=== PATIENT | female | born 2000 | race Caucasian/White ===

== ENCOUNTER 2025-01-04 12:22 | Emergency (ER) | payer BC, SELFPAY ==
--- OUTSIDE RECORDS SUMMARY | 2024-11-26 07:00 | XMS_ITS | Encounter Summary ---
Author Organization [facility] Address [address] [place] [id number] Care Team Providers Care Engine Room Helper Name Role Phone Carlee Bernabe APRN, CNP Primary Care Provider + [phone] Carlee Bernabe APRN TRUCK JUMPER Unavailable [phone] Reason for Visit * Reason Comments Physical Encounter Details Date Type Department Care Team (Late st Contact Info) Description 11/26/2024 7:00 AM CDT Office Visit [facility] [address], [address] [place] [id number] Carlotta Gale PA-C [address] [place] [address] Routine general medical examination at a health care facility (Primary Dx); Menorrhagia with regular cycle; Encounter for counseling regarding contraception Social History Tobacco Use Types Packs/Day Years Used Date Smoking Tobacco: Never Passive Smoke Exposure: Never Smokeless Tobacco: Never Alcohol Use Standard Drinks/Week Comments Yes 3 (1 standard drink = 0.6 oz pur e alcohol) Socially PHQ-2 Answer Date Recorded PHQ-2 Score 2 11/26/2024 [facility] - Occupational Stress Questionnaire Answer Date Recorded Do you feel stress - tense, restless, nervous, or anxious, or unable to sleep at night because your mind is troubled all the time - these days? Rather much 11/25/2024 Exercise Vital Sign Answer Date Recorde d On average, how many days pe r week do you engage in moderate to strenuous exercise (like a brisk walk)? 3 days 11/25/2024 On average, how many minutes do you engage in exercise at this level? 20 min 11/25/2024 Social Connections Answer Date Recorded How often do you feel lonely or isolated from th ose around you? Rarely 11/25/2024 Food Insecurity Answer Date Recorded Within the past 12 months, d id you worry that your food would run out before you got money to buy more? No 11/25/2024 Within the past 12 months, d id the food you bought just not last and you didn t have money to get more? No 11/25/2024 Housing Stability Answer Date Recorded Do you have housing? (Housin g is defined as stable permanent housing and does not include staying outside in a car, in a tent, in an abandoned building, in an overnight [place], or couch-surfing.) Yes 11/25/2024 Are you worried about losing your housing? No 11/25/2024 Financial Resource Strain Answer Date R ecorded Within the past 12 months, h ave you or your family members you live with been unable to get utilities (heat, electricity) when it was really needed? No 11/25/2024 Transportation Needs Answer Date Record ed Within the past 12 months, h as lack of transportation kept you from medical appointments, getting your medicines, non-medical meetings or appointments, work, or from getting things that you need? No 11/25/2024 Interpersonal Safety Answer Date Record ed Do you feel physically and e motionally safe where you currently live? Yes 11/26/2024 Within the past 12 months, h ave you been hit, slapped, kicked or otherwise physically hurt by someone? No 11/26/2024 Within the past 12 months, h ave you been humiliated or emotionally abused in other ways by your partner or ex-partner? No 11/26/2024 Comments No Sex and Gender Information Value Date Recorded Sex Assigned at Not on file Legal Sex Female 3:06 PM CDT Gender Identity Not on file Sexual Orientation Not on file documented as of this encounter Last Filed Vital Signs Vital Sign Reading Time Taken Comments Blood Pressure 112/72 11/26/2024 7:06 AM CDT Pulse 86 11/26/2024 7:06 AM CDT Temperature 36.5 C (97.7 F) 11/26/2024 7:06 AM CDT Respiratory Rate 16 11/26/2024 7:06 AM CDT Oxygen Saturation 100% 11/26/2024 7:06 AM CDT Inhaled Oxygen Concentration - - Weight 66 kg (145 lb 7 oz) 11/26/2024 7:06 AM CD T Height 162.6 cm (5' 4) 11/26/2024 7:06 AM CDT Body Mass Index 24.96 11/26/2024 7:06 AM CDT documented in this encounter Patient Instructions * Patient Instructions* Carlotta Gale PA-C - 11/26/2024 7:00 AM CDT Patient Education Preventive Care Advice This is general advice we often give to help people stay healthy. Your care team may have specific advice just for you. Please talk to your care team about your own preventive care needs. Lifestyle Exercise at least 150 minutes each week (30 minutes a day, 5 days a week). Do muscle strengthening activities 2 days a week. These help control your weight and prevent disease. No smoking. Wear sunscreen to prevent skin cancer. Take time with family and friends. Have your home tested for radon every 2 to 5 years. Radon is a colorless, odorless gas that can harm your lungs. To learn more, go to www.health.[facility].me. and search for Radon in Homes. Keep guns unloaded and locked up in a safe place like a safe or gun vault, or, use a gun lock and hide the keys. Always lock away bullets separately. To learn more, visit DeskGod.CreditEase.gov and search for safe gun storage. Nutrition Eat 5 or more servings of fruits and vegetables each day. Try wheat bread, brown rice and whole grain pasta (instead of white bread, rice, and pasta). Get enough calcium and vitamin D. Check the label on foods and aim for 100% of the TILE MOLDER HAND (recommendeddaily allowance). Regular exams Have a dental exam and cleaning every 6 months. Older adults: Ask your care team how often to have memory testing. See your health care team every year to talk about: Any changes in your health. Any medicines your care team has prescribed. Preventive care, family planning, and ways to prevent chronic diseases. Shots (vaccines) HPV shots (up to age 26), if you've never had them before. Hepatitis B shots (up to age 59), if you've never had them before. COVID-19 shot: Get this shot when it's due. Flu shot: Get a flu shot every year. Tetanus shot: Get a tetanus shot every 10 years. Pneumococcal, hepatitis A, and RSV shots: Ask your care team if you need these based on your risk. Shingles shot (for age 50 and up). General health tests Diabetes screening: Starting at age 35, Get screened for diabetes at least every 3 years. If you are younger than age 35, ask your care team if you should be screened for diabetes. Cholesterol test: At age 39, start having a cholesterol test every 5 years, or more often if advised. Bone density scan (DEXA): At age 50, ask your care team if you should have this scan for osteoporosis (brittle bones). Hepatitis C: Get tested at least once in your life. Abdominal aortic aneurysm screening: Talk to your doctor about having this screening if you: Have ever smoked; and Are biologically male; and Are between the ages of 65 and 75. STIs (sexually transmitted infections) Before age 24: Ask your care team if you should be screened for STIs. After age 24: Get screened for STIs if you're at risk. You are at risk for STIs (including HIV) if: You are sexually active with more than one person. You don't use condoms every time. You or a partner was diagnosed with a sexually transmitted infection. If you are at risk for HIV, ask about PrEP medicine to prevent HIV. Get tested for HIV at least once in your life, whether you are at risk for HIV or not. Cancer screening tests Cervical cancer screening: If you have a cervix, begin getting regular cervical cancer screening tests at age 21. Most people who have regular screenings with normal results can stop after age 65. Talk about this with your provider. Breast cancer scan (mammogram): If you've ever had breasts, begin having regular mammograms starting at age 40. This is a scan to check for breast cancer. Colon cancer screening: It is important to start screening for colon cancer at age 45. Have a colonoscopy test every 10 years (or more often if you're at risk) Or, ask your provider about stool tests like a FIT test every year or Cologuard test every 3 years. To learn more about your testing options, visit: www.OneTwoSee/723324.pdf. For help making a decision, visit: mckenzie/jn08972. Prostate cancer screening test: If you have a prostate and are age 55 to 69, ask your provider if you would benefit from a yearly prostate cancer screening test. Lung cancer screening: If you are a current or former smoker age 50 to 80, ask your care team if ongoing lung cancer screenings are right for you. For informational purposes only. Not to replace the advice of your health care provider. Copyright ?? 2022 [facility] [employer]. All rights reserved. Clinically reviewed by the [employer]. InstantLuxe 007811 - REV 09/17. Learning About Stress What is stress? Stress is your body's response to a hard situation. Your body can have a physical, emotional, or mental response. Stress is a fact of life for most people, and it affects everyone differently. What causes stress for you may not be stressful for someone else. A lot of things can cause stress. You may feel stress when you go on a job interview, take a test, or run a race. This kind of short-term stress is normal and even useful. It can help you if you needto work hard or react quickly. For example, stress can help you finish an important job on time. Long-term stress is caused by ongoing stressful situations or events. Examples of long-term stress include long-term health problems, ongoing problems at work, or conflicts in your family. Long-term stress can harm your health. How does stress affect your health? When you are stressed, your body responds as though you are in danger. It makes hormones that speedup your heart, make you breathe faster, and give you a burst of energy. This is called the ruzkv-mw-rbhwco stress response. If the stress is over quickly, your body goes back to normal and no harm isdone. But if stress happens too often or lasts too long, it can have bad effects. Long-term stress can make you more likely to get sick, and it can make symptoms of some diseases worse. If you tense up when you are stressed, you may develop neck, shoulder, or low back pain. Stress is linked to high bloodpressure and heart disease. Stress also harms your emotional health. It can make you mojica, tense, or depressed. Your relationships may suffer, and you may not do well at work or school. What can you do to manage stress? You can try these things to help manage stress: Do something active. Exercise or activity can help reduce stress. Walking is a great way to get started. Even everyday activities such as housecleaning or yard work can help. Try yoga or ginger chi. These techniques combine exercise and meditation. You may need some training at first to learn them. Do something you enjoy. For example, listen to music or go to a movie. Practice your hobby or do volunteer work. Meditate. This can help you relax, because you are not worrying about what happened before or what may happen in the future. Do guided imagery. Imagine yourself in any setting that helps you feel calm. You can use online videos, books, or a teacher to guide you. Do breathing exercises. For example: From a standing position, bend forward from the waist with your knees slightly bent. Let your arms dangle close to the floor. Breathe in slowly and deeply as you return to a standing position. Roll up slowly and lift your head last. Hold your breath for just a few seconds in the standing position. Breathe out slowly and bend forward from the waist. Let your feelings out. Talk, laugh, cry, and express anger when you need to. Talking with supportive friends or family, a counselor, or a allyn leader about your feelings is a healthy way to relieve stress. Avoid discussing your feelings with people who make you feel worse. Write. It may help to write about things that are bothering you. This helps you find out how much stress you feel and what is causing it. When you know this, you can find better ways to cope. What can you do to prevent stress? You might try some of these things to help prevent stress: Manage your time. This helps you find time to do the things you want and need to do. Get enough sleep. Your body recovers from the stresses of the day while you are sleeping. Get support. Your family, friends, and community can make a difference in how you experience stress. Limit your news feed. Avoid or limit time on social media or news that may make you feel stressed. Do something active. Exercise or activity can help reduce stress. Walking is a great way to get started. Where can you learn more? Go to https://www.OneRecruit.net/patiented Enter N032 in the search box to learn more about Learning About Stress. Current as of: January 17, 2024 Content Version: 14.5 ?? 7060-7012 [employer]dit. Care instructions adapted under license by your healthcare professional. If you have questions about a medical condition or this instruction, always ask your healthcare professional. [employer] disclaims any warranty or liability for your use of this information. documented in this encounter Progress Notes * Carlotta Gale PA-C - 11/26/2024 7:00 AM CDT Images from the original note were not included. Preventive Care Visit [facility] Carlotta Gale PA-C, Family Medicine Nov 26, 2024 Assessment & Plan Routine general medical examination at a health care facility Reviewed VS, weight/BMI Routine screenings see orders Immunizations: see orders and documentation in HPI. Discussed vaccines coverage as pharmacy benefit. Health and cancer screening recommendations delivered according to the USPSTF and other appropriatesociety guidelines Nutrition and exercise counseling performed. 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 Periods are regular. Screen for anemia and thyroid dysfunction. Had normal CBC last year. - CBC with platelets; Future - TSH with free T4 reflex; Future - CBC with platelets - TSH with free T4 reflex Encounter for counseling regarding contraception Discussed combination OCP. Has hx of post-concussive migraine w/visual aura. Has seen neurology andeye doctor annually. Discussed risks vs benefits w/estrogen containing contraception and migraine w/aura, increased clot risk and if aggravating migraines, then would need progesterone only options. She declines rx. When in teen years did not like irregular bleeding/spotting had on her OCP. Wants to hold on progestin only contraception for now. Will think on it and follow up as needed. Patient has been advised of split billing requirements and indicates understanding: Yes Counseling Appropriate preventive services were addressed with this patient via screening, questionnaire, or discussion as appropriate for fall prevention, nutrition, physical activity, Tobacco-use cessation, social engagement, weight loss and cognition. Checklist reviewing preventive services available has been given to the patient. Reviewed patient's diet, addressing concerns and/or questions. She is at risk for lack of exercise and has been provided with information to increase physical activity for the benefit of her well-being. She is at risk for psychosocial distress and has been provided with information to reduce risk. Reviewed preventive health counseling, as reflected in patient instructions Regular exercise Healthy diet/nutrition Contraception Follow Up: see above. Additionally patient was instructed to contact clinic for worsening symptoms,non-improvement in time frame discussed, and for questions regarding treatment plan. For virtual visits, the patient was advised to be seen for in person evaluation if symptoms or condition are worsening or non-improvement as expected. 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 Repeat in 3 yr. Contraception: abstinent currently. Condoms. Was on OCP years ago but had heavier periods on the one she tried. Periods: regular, monthly. Days of bleeding- 4-5. 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 Saw neurology in 2022. Gets them once a week. Pain is frontal. Shegets a visual aura of double preceding the headache. Had normal MRI. Walking for exercise, biking. 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 Advance Care Planning Discussed advance care planning with patient; informed AVS has link to [employer] [employer]. 11/25/2024 General Health How would you rate your overall physical health? Good Feel stress (tense, anxious, or unable to sleep) Rather much (!) STRESS CONCERN 11/25/2024 Nutrition Three or more servings of calcium each day? (!) NO Diet: Breakfast skipped How many servings of fruit and vegetables per day? (!) 2-3 How many sweetened beverages each day? (!) 2 11/25/2024 Exercise Days per week of moderate/strenous exercise 3 days Average minutes spent exercising at this level 20 min 11/25/2024 Social Factors Frequency of feeling lonely or isolated Rarely Worry food won't last until get money to buy more No Food not last or not have enough money for food? No Do you have housing? (Housing is defined as stable permanent housing and does not include staying outside in a car, in a tent, in an abandoned building, in an overnight [place], or couch-surfing.) Yes Are you worried about losing your housing? No Lack of transportation? No Unable to get utilities (heat,electricity)? No 11/25/2024 Dental Dentist two times every year? Yes Today's PHQ-2 Score: 11/25/2024 10:51 AM PHQ-2 (??1998 [employer]) Q1: Little interest or pleasure in doing things 1 Q2: Feeling down, depressed or hopeless 1 PHQ-2 Score 2 Q1: Little interest or pleasure in doing things Several days Q2: Feeling down, depressed or hopeless Several days PHQ-2 Score 2 Patient-reported 11/25/2024 Substance Use Alcohol more than 3/day or more than 7/wk No Do you use any other substances recreationally? No Social History Tobacco Use Smoking status: Never Passive exposure: Never Smokeless tobacco: Never Vaping Use Vaping status: Never Used Substance Use Topics Alcohol use: Yes Alcohol/week: 3.0 standard drinks of alcohol Types: 3 Standard drinks or equivalent per week Comment: Socially Drug use: Never 11/25/2024 STI Screening New sexual partner(s) since last STI/HIV test? No History of abnormal Pap smear: No - age 21-29 PAP every 3 years recommended 12/19/2023 4:55 PM PAP / HPV PAP Negative for Intraepithelial Lesion or Malignancy (NILM) 11/25/2024 Contraception/Family Planning Questions about contraception or family planning (!) YES What are your periods like? (!) HEAVY FLOW- used to have very heavy flow- nighttime pad, changing every 2 hours for first 2 days. 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 Reviewed and updated as needed this visit by Provider Past Medical History: Diagnosis Date Depressive disorder History reviewed. No pertinent surgical history. Lab work is in process Labs reviewed in EPIC BP Readings from Last 3 Encounters: 11/26/24 112/72 12/19/23 111/76 Wt Readings from Last 3 Encounters: 11/26/24 66 kg (145 lb 7 oz) 12/19/23 57.7 kg (127 lb 3.2 oz) Patient Active Problem List Diagnosis Migraine without aura and without status migrainosus, not intractable Diplopia Anxiety and depression History reviewed. No pertinent surgical history. Social History Tobacco Use Smoking status: Never Passive exposure: Never Smokeless tobacco: Never Substance Use Topics Alcohol use: Yes Alcohol/week: 3.0 standard drinks of alcohol Types: 3 Standard drinks or equivalent per week Comment: Socially Family History Problem Relation Age of Onset Diabetes Paternal Grandmother No current outpatient medications on file. No Known Allergies Review of Systems Constitutional, HEENT, cardiovascular, pulmonary, gi and gu systems are negative, except as otherwise noted. Objective Exam BP 112/72 (BP Location: Left arm, Patient Position: Chair, Cuff Size: Adult Regular) Pulse 86 Temp 97.7 ??F (36.5 ??C) (Temporal) Resp 16 Ht 1.626 m (5' 4) Wt 66 kg (145 lb 7 oz) LMP 11/20/2024 (Exact Date) SpO2 100% No BMI 24.96 kg/m?? Estimated body mass index is 24.96 kg/m?? as calculated from the following: Height as of this encounter: 1.626 m (5' 4). Weight as of this encounter: 66 kg (145 lb 7 oz). Physical Exam GENERAL: alert and no distress EYES: Eyes grossly normal to inspection, PERRL and conjunctivae and sclerae normal HENT: ear canals and TM's normal, nose and mouth without ulcers or lesions NECK: no adenopathy, no asymmetry, masses, or scars RESP: lungs clear to auscultation - no rales, rhonchi or wheezes BREAST: normal without masses, tenderness or nipple discharge and no palpable axillary masses or adenopathy CV: regular rate and rhythm, normal S1 S2, no S3 or S4, no murmur, click or rub, no peripheral edema ABDOMEN: soft, nontender, no hepatosplenomegaly, no masses and bowel sounds normal MS: no gross musculoskeletal defects noted, no edema SKIN: no suspicious lesions or rashes NEURO: Normal strength and tone, mentation intact and speech normal PSYCH: mentation appears normal, affect normal/bright Results for orders placed or performed in visit on 11/26/24 CBC with platelets Status: Normal Result Value Ref Range WBC Count 8.07 4.00 - 11.00 10e3/uL RBC Count 4.48 3.80 - 5.20 10e6/uL Hemoglobin 13.3 11.7 - 15.7 g/dL Hematocrit 40.4 35.0 - 47.0 % MCV 90.2 78.0 - 100.0 fL MCH 29.7 26.5 - 33.0 pg MCHC 32.9 31.5 - 36.5 g/dL RDW 12.4 10.0 - 15.0 % Platelet Count 285 150 - 450 10e3/uL Signed Electronically by: Carlotta Gale PA-C documented in this encounter Plan of Treatment Not on file documented as of this encounter Procedures Procedure Name Priority Date/Time Associated Diagnosis Comments TSH WITH FREE T4 REFLEX Routine 11/26/2024 7:36 AM CDT Menorrhagia with regular cycle CBC WITH PLATELETS Routine 11/26/2024 7: 36 AM CDT Menorrhagia with regular cycle documented in this encounter Results * TSH with free T4 reflex (11/26/2024 7:36 AM CDT) TSH 1.65 0.30 - 4.20 uIU/mL 11/26/2024 5:12 PM CDT [facility] Blood BLOOD SPECIMEN / Unknown Venipuncture / Unknown 11/26/2024 7:36 AM CDT 11/26/2024 7:36 AM CDT us Carlotta Gale PA-C LAB - BLOOD ORDERABLES F inal Result [facility] [address] [place] [address], [place] * CBC with platelets (11/26/2024 7:36 AM CDT) WBC Count 8.07 4.00 - 11.00 10e3/uL 11/26/2024 7:44 AM CDT [facility] RBC Count 4.48 3.80 - 5.20 10e6/uL 11/26/2024 7:44 AM CDT [facility] Hemoglobin 13.3 11.7 - 15.7 g/dL 11/26/2024 7:44 AM CDT [facility] Hematocrit 40.4 35.0 - 47.0 % 11/26/2024 7:44 AM CDT [facility] MCV 90.2 78.0 - 100.0 fL 11/26/2024 7:44 AM CDT [facility] MCH 29.7 26.5 - 33.0 pg 11/26/2024 7:44 AM CDT LABORATORY MCHC 32.9 31.5 - 36.5 g/dL 11/26/2024 7:44 AM CDT LABORATORY RDW 12.4 10.0 - 15.0 % 11/26/2024 7:44 AM CDT LABORATORY Platelet Count 285 150 - 450 10e3/uL 11/26/2024 7:44 AM CDT [facility] Blood BLOOD SPECIMEN / Unknown Venipuncture / Unknown 11/26/2024 7:36 AM CDT 11/26/2024 7:36 AM CDT us Carlotta Gale PA-C LAB - BLOOD ORDERABLES F inal Result LABORATORY [facility] [address] [facility] Lab, [address] Floor [address] [place] [address], [facility] [place] documented in this encounter Visit Diagnoses Diagnosis Routine general medical examination at a health care facility- Primary Menorrhagia with regular cycle Excessive or frequent menstruation Encounter for counseling regarding contraception documented in this encounter Additional Health Concerns Assessment Noted Time PHQ-9 Depression Total Score: 12 12/18/ 024 3:56 PM CDT documented as of this encounter Care Teams Engine Room Helper Relationship Specialty Start Date End Date Carlee Bernabe APRN TRUCK JUMPER [id number] [place] [id number] PCP - General Family Medicine 12/19/23 Carlee Bernabe APRN [facility] [id number] [place] [id number] Assigned PCP 01/16/24 documented as of this encounter
[2025-01-04] VITALS (50 sets, daily range): BP systolic 101–153; BP diastolic 59–109; PULSE 86–167; RESP 5–25; TEMP 36.1; O2SAT 100
--- NOTE | 2025-01-04 | CRLHL7_ITS ---
For Patients: As a result of the Cures Act, medical imaging exams and procedure reports are released immediately into your electronic medical record. You may view this report before your referring provider. If you have questions, please contact your health care provider. INDICATION: Fall from horse with left shoulder injury and clavicle pain TECHNIQUE: CT left shoulder reconstructed from same day CT chest with contrast. COMPARISON: Left shoulder radiographs 08/18/2011. FINDINGS: There is an acute, minimally displaced and comminuted fracture of the left mid clavicular shaft. The acromioclavicular joint remains congruent. The glenohumeral joint is congruent. Partially imaged acute left-sided rib fractures better evaluated on separate same-day CT chest with adjacent soft tissue emphysema, patchy ground-glass opacities in the left lung, and left pneumothorax. IMPRESSION: Acute, minimally displaced fracture of the left midclavicular shaft. Please see separately reported same day CT of the chest for further evaluation of thoracic findings including left-sided rib fractures, possible pulmonary contusions, and left pneumothorax. Please note that all CT scans at this facility use dose modulation, iterative reconstruction, and/or weight-based dosing when appropriate to reduce radiation dose to as low as reasonably achievable. Dictated by Minerva Prado MD @ 01/04/2025 1:44:24 PM (Electronically Signed)
--- OUTSIDE RECORDS SUMMARY | 2025-01-04 12:24 | XMS_ITS | Clinical Summary ---
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 90 Tablet 3 09/13/2022 Active Active Problems No known active problems Resolved Problems Problem Noted Date Diagnosed Date Resolved Date Menorrhagia 08/31/2014 08/31/2014 Healthy or child 12/06/201008/25 Immunizations Immunization Administration Dates Next Due COVID-19 vaccine (Afrimarket NTech 30mcg/0.3mL) 12YO+ BIVALENT PF, MDV 09/13/2022 COVID-19 vaccine ([employer] NTech 30mcg/0.3mL) PF, MDV 12/17/2020,11/26/2020 DTaP 08/13/2006, 2,2001,10/08 [id number] (Pediarix) 11/13/2002 HIB-HepB (Comvax) 2001,2001 HPV 9 (Gardasil 9) 04/03/2017,11/23/2016, 017 Hepatitis A (Peds) 04/03/2017,09/18/2016 Hib Conjugate, Unspecified 11/13/2002 Inactivated Polio Vaccine 08/13/2006,2001, 2001 Influenza A (H1N1), Inactivated 04/05/2009 Influenza A (H1N1), Inactiva kris (Age >=3 Years) 02/11/2009 Influenza, IIV3 (Age >=3 years) 03/09/2010,02/04 MENINGOCOCCAL VACCINE 2 VIAL 2MO-55YO (MENVEO) 09/24/2017,08/26/2013 MMR 08/13/2006,08/12/2002 Pneumococcal conj 7-Valent (Prevnar 7) 0 11/13/2002,02/04/2002,2001,10/08 Tdap 09/13/2022,09/13/2012 Varicella Vaccine 08/13/2006,08/12/2002 Family History Medical History Relation Name Comments Good Health Brother 2 Good Health Father Good Health Mother Asthma No Family History Cancer-breast No Family History Cancer-colon No Family History Diabetes No Family History Heart Disease No Family History Hyperlipidemia No Family History Other No Family History ulcerative colitis, crohns Relation Name Status Comments Brother 1 Alive Brother 2 Father Alive Mother Alive Social History Tobacco Use Types Packs/Day Years Used Date Smoking Tobacco: Never Smokeless Tobacco: Never Tobacco Cessation:Counseling Given: Yes Comments:no exposure Alcohol Use Standard Drinks/Week Comments No 0 (1 standard drink = 0.6 oz pur e alcohol) PHQ-2 Answer Date Recorded PHQ-2 TOTAL SCORE 2 09/13/2022 Social Connections Answer Date Recorded Frequency of Communication with Friends and Fami ly Not on file 03/26/2021 Financial Resource Strain Answer Date R ecorded Difficulty of Paying Living Expenses Not on file 03/26/2021 Difficulty of Paying Living Expenses Not on file 03/26/2021 Comments No Sex and Gender Information Value Date Recorded Sex Assigned at Not on file 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 Gender Identity Not on file Sexual Orientation Not on file Obstetrics History Para Term AB IAB SAB Ectopic Multiple Livin g Live Births 0 0 0 0 0 0 0 0 0 0 0 Last Filed Vital Signs Vital Sign Reading Time Taken Comments Blood Pressure 120/72 11/08/2022 12:54 PM CDT Pulse 88 11/08/2022 12:54 PM CDT Temperature 36.7 C (98.1 F) 10/30/2019 8:29 AM CDT Respiratory Rate 20 01/23/2018 1:45 PM CDT Oxygen Saturation 100% 11/08/2022 12:54 PM CDT Inhaled Oxygen Concentration - - Weight 59.2 kg (130 lb 9.6 oz) 11/08/2022 12:54 PM CDT Height 161.8 cm (5' 3.7) 07/31/2022 1:12 PM CDT Body Mass Index - - Plan of Treatment Health Maintenance Due Date Last Done Comments HIV for age 15-65 2016 Hepatitis C screening for age 18-79 08/12/2019 Pap test for age 21-65 2022 BMI (ht and wt on same day) for age 18+ 08/01/2023 07/31/2022, 10/30/2019 Depression screening for age 12+ 09/14/2023 09/13/2022, 07/31/2022, 10/30/2019, Additional history exists COVID-19 vaccine series (2024- season) 2024 09/13/2022, 12/17/2020, 11/26/2020 Influenza Vaccine (#1) 2024 03/09/2010, 2009 Tetanus booster 09/13/2032 09/13/2022, 09/13/2012 RSV vaccine for adults or (1 - 1-dose 75+ series) 2076 Hepatitis B series for 19+ Completed 11/13, 2001, 2001 Pneumococcal series for age 6-49 Aged Out 11/13/2002, 02/04/2002, 2001, Additional history exists No longer eligible based on patient's age to complete this topic HPV series for age 9-45 Completed 04/03/19 18, 11/23/2016, 09/18/2016 [place] [id number] [id number] [employer] 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
--- NOTE | 2025-01-04 12:26 | CRLHL7_ITS ---
For Patients: As a result of the Century Cures Act, medical imaging exams and procedure reports are released immediately into your electronic medical record. You may view this report before your referring provider. If you have questions, please contact your health care provider. INDICATION: Fall from horse with injury. TECHNIQUE: CT chest with 100 cc Omnipaque 350 IV contrast. COMPARISON: None. FINDINGS: Examination is limited by motion. A moderate left pneumothorax is present. There nodular peripheral areas of ground-glass noted within the left lung which likely represents contusion mild left basilar atelectasis is also noted. No definitive evidence of laceration. There is lucency within the right apex favored to be artifactual with no definite right pneumothorax. Minimal right basilar atelectasis is seen. No significant pleural effusion. Small amount of anterior mediastinal soft tissue likely represents residual thymic tissue given the patient`s age. No definite hematoma. No mediastinal or hilar lymphadenopathy. The heart is normal in size. No significant pericardial effusion. There is motion within the aortic root. Additionally there is motion obscuring the ascending aorta elsewhere. The aorta is nonaneurysmal. No gross evidence of dissection. There is some stranding noted within the left axilla. There is motion artifact obscuring the left axillary and left subclavian artery which appears to be patent. The veins are not opacified. Organized hematoma seen within the region. No gross extravasation. There is gas noted within the left anterior chest wall and left tech minor musculature. No gross abnormality is seen within the right chest. Images of the upper abdomen demonstrate heterogeneity of the spleen which is likely due to phase of contrast timing. No significant Melany splenic fluid or stranding. Mildly displaced left 3rd rib fracture minimally displaced left 4th rib fracture. T4-T10 spinous process fractures. Mildly displaced left clavicle fracture. IMPRESSION: 1. Moderate left pneumothorax with significant subcutaneous emphysema within the left chest wall. 2. Nodular ground-glass opacities within the aerated left lung as evidence for contusion. 3. Mildly displaced left 3rd-4th rib fractures. Mildly displaced left clavicle fracture. T4-T10 spinous process fractures. Follow-up spine CT/MRI is recommended for evaluation. 4. Small amount of anterior mediastinal soft tissue, likely residual thymic tissue. No definite anterior mediastinal hematoma. Motion artifact obscures the thoracic aorta with no definitive evidence of acute traumatic aortic injury. Case discussed with Dr. Gale at approximately 2:30 p.m. on 01/04/2025. Please note that all CT scans at this facility use dose modulation, iterative reconstruction, and/or weight-based dosing when appropriate to reduce radiation dose to as low as reasonably achievable. Dictated by Gabriel Parra MD @ 01/04/2025 2:35:56 PM (Electronically Signed)
--- NOTE | 2025-01-04 12:26 | CRLHL7_ITS ---
For Patients: As a result of the Century Cures Act, medical imaging exams and procedure reports are released immediately into your electronic medical record. You may view this report before your referring provider. If you have questions, please contact your health care provider. Indication: Fall. Technique: Noncontrast CT images of the cervical spine. Comparison: CT cervical spine 09/09/2017. Findings: The cervical lordosis is maintained. Slight rightward cervical curvature. Vertebral body heights are maintained. No acute fracture, spondylolisthesis, or traumatic subluxation. No spinal canal or neural foraminal stenosis. Incompletely visualized left apical pneumothorax, better characterized on concurrent chest CT. Impression: 1. No acute fracture or traumatic subluxation. 2. Incompletely visualized left apical pneumothorax, better characterized on concurrent chest CT. Please note that all CT scans at this facility use dose modulation, iterative reconstruction, and/or weight-based dosing when appropriate to reduce radiation dose to as low as reasonably achievable. Dictated by Damien Salcido MD @ 01/04/2025 2:27:48 PM (Electronically Signed)
--- NOTE | 2025-01-04 12:26 | CRLHL7_ITS ---
For Patients: As a result of the Century Cures Act, medical imaging exams and procedure reports are released immediately into your electronic medical record. You may view this report before your referring provider. If you have questions, please contact your health care provider. Indication: Fall. Dizziness. Technique: Noncontrast CT images of the brain. Comparison: CT brain 09/09/2017. Findings: The ventricles and sulci are within normal limits for patient age. No mass effect or midline shift. Meléndez-white differentiation is maintained. No acute intracranial hemorrhage or pathologic extra-axial fluid collection. Globes are symmetric. Calvarium is intact. Mild left maxillary sinus mucosal thickening. The mastoid air cells are clear. Impression: No acute intracranial hemorrhage or mass effect. Please note that all CT scans at this facility use dose modulation, iterative reconstruction, and/or weight-based dosing when appropriate to reduce radiation dose to as low as reasonably achievable. Dictated by Damien Salcido MD @ 01/04/2025 2:24:48 PM (Electronically Signed)
--- NOTE | 2025-01-04 12:30 | ED.NURSE ---
No TTA per Dr. Gale at Pt side during triage.
--- NOTE | 2025-01-04 12:33 | ED_ITS ---
HPI - General Adult General Date Seen: 01/04/25 <Santo Gale MD - Last Filed: 01/04/25 15:53> Chief complaint: Extremity Pain/Injury, Upper <Santo Gale MD - Last Filed: 01/04/25 15:53> Stated complaint: shldr injury <Santo Gale MD - Last Filed: 01/04/25 15:53> Time Seen by Provider: 01/04/25 12:26 <Santo Gale MD - Last Filed: 01/04/25 15:53> History of Present Illness HPI narrative: This is a 24-year-old generally healthy female who is on no regular medications and has no medication allergies. She presents to the ER today by private car with her family for evaluation of injuries after she fell off a horse. She is with her mother. She last ate yesterday evening at a wedding. She did not have any breakfast this morning, which is typical for her. She was riding a horse when she fell off. She landed directly on her left shoulder and is having a lot a left shoulder pain in the clavicle and is concerned that it is probably broken. She is not able to move her left shoulder arm due to pain. No numbness in that arm. She also hit her head on the ground but was not knocked out. She was momentarily dazed and saw white. She has been dizzy. No severe headache. No nausea. No vomiting. Vision is normal. She is not having any neck pain. She also has pain in the left rib cage and left posterior ribcage/scapula. It hurts to breathe. She is not really short of breath. No abdominal pain. No back pain. No injury to her hips or pelvis. She also suffered some injuries to her left hand 2nd and 3rd digits which she thinks are probably scrapes. There are bleeding slightly but no longer bleeding. <Santo Gale MD - Last Filed: 01/04/25 15:53> Related Data Home medications: Home Medications ?Medication ?Instructions ?Recorded ?Confirmed No Known Home Medications 01/04/2512/24 <Santo Gale MD - Last Filed: 01/04/25 15:53> Allergies/adverse reactions: Allergies Allergy/AdvReac Type Severity Reaction Status Date / Time hydromorphone Allergy Rash Verified 01/04/25 17:44 ketamine Allergy Rash Verified 01/04/25 15:38 <Santo Gale MD - Last Filed: 01/04/25 15:53> [facility] Social History: Social History Smoking Status: Never smoker How often do you have a drink containing alcohol: 2-4 times a month AUDIT-C Alcohol total score: 2 Non-prescribed substance use: denies use <Santo Gale MD - Last Filed: 01/04/25 15:53> Exam Narrative: Exam Narrative: Primary Survey: A- patent. Speaking clearly. Phonation normal. No stridor. B- breathing easily. Lung sounds clear and equal. Oxygen saturation normal on room air C- no active bleeding. Blood pressure stable. Symmetric pulses and cap refill in 4 extremities. D- alert and oriented x3. GCS 15. No focal deficits. Constitutional: Appears well-developed and well-nourished. Alert. Uncomfortable and requires assistance of 2 nurses to go to the parking lot to assist her out of the trailer in which her family brought her to the hospital. They were able to get her up and bring her into the ER in a wheelchair. I encounter as they come into the ER and accompany her to ER bed 8 for her initial primary survey. Conversant. Uncomfortable, but Non toxic. HENT: Head: She has some dirt and dry leaves in her hair. No depressed skull fracture, Raccoon Eyes, Liao's sign, or hemotympanum. Face normal. TMs normal Nose: Nose normal. Mouth/Throat: Oral mucosa is clear and moist. no trismus. Pharynx normal. Tonsils symmetric. No tonsillar enlargement, erythema, or exudate. Eyes: Conjunctivae normal. EOM normal. Pupils equal, round, and reactive to light. No scleral icterus. Neck: No posterior midline tenderness or step-off but cannot be cleared by clinical criteria because of distracting orthopedic injury (left shoulder pain). Normal range of motion. Neck supple. No tracheal deviation present. Cardiovascular: Normal rate, regular rhythm. No gallop. No friction rub. No murmur heard. Symmetric radial artery pulses . Normal distal cap refill. Dry blood on the fingers of her left hand but no active bleeding. Normal distal cap refill in both fingers. Pulmonary/Chest: Effort normal. No stridor. No respiratory distress. No wheezes. No rales. No rhonchi . No tenderness. Abdominal: Soft. Bowel sounds normal. No distension. No mass. No tenderness. No rebound. No guarding. Musculoskeletal: No midline T or L-spine tenderness. She is tender over the left scapula, left clavicle. No definite bruising or deformity. Range of motion left shoulder is limited by pain. No obvious tenderness or deformity of the proximal humerus. Clinically does not have any easily apparent glenohumeral joint dislocation. Humeral shaft, elbow, forearm, wrist, hand are normal. She has injuries to her left hand 2nd and 3rd digits[] RUE: Normal range of motion. No tenderness. No deformity RLE: Normal range of motion. No edema. No tenderness. No deformity LLE: Normal range of motion. No edema. No tenderness. No deformity Neurological: Alert and oriented to person, place, and time. Normal strength. CN II-VII intact. No sensory deficit. GCS eye subscore is 4. GCS verbal subscore is 5. GCS motor subscore is 6. Normal coordination Skin: Skin is warm and dry. No rash noted. No pallor. Normal capillary refill. Psychiatric: Normal mood. Normal affect. Very polite. <Santo Gale MD - Last Filed: 01/04/25 15:53> Const: Vital Signs, click to edit/add: Vital Signs - 24 hr 01/04/25 12:28 01/04/25 14:12 01/04/25 14:15 Temperature 97 F L Pulse Rate 86 90 Pulse Rate [Right Pulse Oximeter] 87 Respiratory Rate 18 7 L 12 Blood Pressure Blood Pressure [Ri ght Upper Arm] 110/89 Pulse Oximetry 100 100 100 Oxygen Delivery Me thod Room Air 01/04/25 14:22 01/04/25 14:30 01/04/25 14:41 Temperature Pulse Rate 92 90 94 Pulse Rate [Right Pulse Oximeter] Respiratory Rate 14 14 6 L Blood Pressure 101/74 124/80 Blood Pressure [Ri ght Upper Arm] Pulse Oximetry 100 100 100 Oxygen Delivery Me thod 01/04/25 14:45 01/04/25 14:59 01/04/25 15:00 Temperature Pulse Rate 100 88 95 Pulse Rate [Right Pulse Oximeter] Respiratory Rate 15 16 11 L Blood Pressure 114/83 Blood Pressure [Ri ght Upper Arm] Pulse Oximetry 100 100 100 Oxygen Delivery Me thod 01/04/25 15:01 01/04/25 15:06 01/04/25 15:08 Temperature Pulse Rate 107 H 144 H 145 H Pulse Rate [Right Pulse Oximeter] Respiratory Rate 9 L 25 H 18 Blood Pressure 119/86 153/92 H 148/91 H Blood Pressure [Ri ght Upper Arm] Pulse Oximetry 100 100 100 Oxygen Delivery Me thod 01/04/25 15:11 01/04/25 15:15 01/04/25 15:16 Temperature Pulse Rate 167 H 163 H 162 H Pulse Rate [Right Pulse Oximeter] Respiratory Rate 17 20 9 L Blood Pressure 141/76 H 145/76 H Blood Pressure [Ri ght Upper Arm] Pulse Oximetry 100 100 100 Oxygen Delivery Me thod 01/04/25 15:21 01/04/25 15:26 01/04/25 15:30 Temperature Pulse Rate 143 H 133 H 129 H Pulse Rate [Right Pulse Oximeter] Respiratory Rate 22 10 L Blood Pressure 140/91 H 147/92 H Blood Pressure [Ri ght Upper Arm] Pulse Oximetry 100 100 100 Oxygen Delivery Me thod 01/04/25 15:31 01/04/25 15:36 01/04/25 15:41 Temperature Pulse Rate 128 H 132 H 128 H Pulse Rate [Right Pulse Oximeter] Respiratory Rate 18 14 15 Blood Pressure 144/109 H 153/87 H 142/93 H Blood Pressure [Ri ght Upper Arm] Pulse Oximetry 100 100 100 Oxygen Delivery Me thod <Santo Gale MD - Last Filed: 01/04/25 15:53> Vital Signs, click to edit/add: Vital Signs - 24 hr 01/04/25 12:28 01/04/25 14:12 01/04/25 14:15 Temperature 97 F L Pulse Rate 86 90 Pulse Rate [Right Pulse Oximeter] 87 Respiratory Rate 18 7 L 12 Blood Pressure Blood Pressure [Ri ght Upper Arm] 110/89 Pulse Oximetry 100 100 100 Oxygen Delivery Me thod Room Air 01/04/25 14:22 01/04/25 14:30 01/04/25 14:41 Temperature Pulse Rate 92 90 94 Pulse Rate [Right Pulse Oximeter] Respiratory Rate 14 14 6 L Blood Pressure 101/74 124/80 Blood Pressure [Ri ght Upper Arm] Pulse Oximetry 100 100 100 Oxygen Delivery Me thod 01/04/25 14:45 01/04/25 14:59 01/04/25 15:00 Temperature Pulse Rate 100 88 95 Pulse Rate [Right Pulse Oximeter] Respiratory Rate 15 16 11 L Blood Pressure 114/83 Blood Pressure [Ri ght Upper Arm] Pulse Oximetry 100 100 100 Oxygen Delivery Me thod 01/04/25 15:01 01/04/25 15:06 01/04/25 15:08 Temperature Pulse Rate 107 H 144 H 145 H Pulse Rate [Right Pulse Oximeter] Respiratory Rate 9 L 25 H 18 Blood Pressure 119/86 153/92 H 148/91 H Blood Pressure [Ri ght Upper Arm] Pulse Oximetry 100 100 100 Oxygen Delivery Me thod 01/04/25 15:11 01/04/25 15:15 01/04/25 15:16 Temperature Pulse Rate 167 H 163 H 162 H Pulse Rate [Right Pulse Oximeter] Respiratory Rate 17 20 9 L Blood Pressure 141/76 H 145/76 H Blood Pressure [Ri ght Upper Arm] Pulse Oximetry 100 100 100 Oxygen Delivery Me thod 01/04/25 15:21 01/04/25 15:26 01/04/25 15:30 Temperature Pulse Rate 143 H 133 H 129 H Pulse Rate [Right Pulse Oximeter] Respiratory Rate 22 10 L Blood Pressure 140/91 H 147/92 H Blood Pressure [Ri ght Upper Arm] Pulse Oximetry 100 100 100 Oxygen Delivery Me thod 01/04/25 15:31 01/04/25 15:36 01/04/25 15:41 Temperature Pulse Rate 128 H 132 H 128 H Pulse Rate [Right Pulse Oximeter] Respiratory Rate 18 14 15 Blood Pressure 144/109 H 153/87 H 142/93 H Blood Pressure [Ri ght Upper Arm] Pulse Oximetry 100 100 100 Oxygen Delivery Me thod <Mary Gale MD - Last Filed: 01/06/25 19:54> Course Reevaluation(s) Time of Reevaluation #1: 15:21 <Mary Gale MD - Last Filed: 01/06/25 19:54> Reevaluation #1: Was asked to assist with conscious sedation while patient was having a chest tube placed by Dr. Gale. Patient had appropriate cardiac monitoring, supplemental oxygen, pulse oximetry and capnography monitoring during the procedure. She was given 80 mg IV push ketamine. Nursing staff noted that her pulse had jumped to 150, this was almost immediately after the ketamine, patient's torso abdomen and then progressing out onto her arms with showing pinkish to erythematous your urticarial type rash. 25 mg IV Benadryl was given and then 0.3 mg epinephrine IM. Patient blood pressure was cycled, she never became hypotensive, did not note any oral pharyngeal changes, no wheezing noted. Her rash completely resolved. The only thing she had been given was the ketamine in conjunction with this reaction. Patient should be considered ketamine allergic at this point. Patient was starting to awaken at the end of the procedure and complaining of pain, did order 0.5 mg IV Dilaudid for her. She will continue to be monitored, further care per Dr. Gale. <Mary Gale MD - Last Filed: 01/06/25 19:54> Reevaluation #2: Recheck-I reviewed the patient's CT scans and I do think that there is a minimally displaced fracture in the distal 1/3 of the shaft of the clavicle. Also, more nor were the, she has fairly extensive subcutaneous emphysema, moderate size pneumothorax, rib fractures of ribs 3 and 4 on that left side. I do not see any hemothorax. Upon seeing the x-ray I recheck the patient. Vitals were stable with normal oxygen, normal pulse and blood pressure. Placed on monitor % oxygen to promote resorption of her pneumo. Will need chest tube. I ordered a portable chest x-ray to get a better view and measurement of the size of the pneumothorax. Portable chest was obtained and I can see at least 1 of the 2 rib fractures well as well as the pneumothorax with a 4 cm distance from the apex of the lung to the apex of the thorax. No definite pleural effusion visible on the x-ray. She remains hemodynamically stable. Discussed with surgery, Dr. Keys. She agrees that the patient needs a chest tube. She is in different to whether not we place a percutaneous tube to drain the pneumo or he small chest tube. She encourage is transferred to the trauma center as patients with a chest tube drainage from trauma cannot be kept here at [place] (per policy). Discussed the situation with the patient and mother. They are in agreement for chest tube placement and transfer. The patient actually lives in the [facility] [place], [place]. Therefore transferred to the [facility] would make practical since for the patient any way. Discussed with the ER at [facility], Dr. Lam. She accepts the patient in transfer. She agrees it would be ideal to have the chest tube placed prior to transfer. I work with nursing staff to get the patient on appropriate monitoring for procedural sedation for chest tube placement into obtain the appropriate equipment. We performed procedural sedation to make the chest tube placement procedure tolerable for the patient. It would be almost impossible to abduct her arm for appropriate positioning with her associated clavicle fracture without sedation. Please see Dr. Penn so notes for the sedation. Of note the patient remained oxygenation stable throughout the sedation and there were no airway complications. However she did develop fairly diffuse hives almost immediately after initiation of ketamine. This is concerning for allergic reaction to the ketamine. We treated this with Benadryl 25 mg IV and epinephrine 0.3 mg IM. Complete resolution of hives. No signs of other evolving allergic reaction phenomena such as bronchospasm, hypoxia, airway swelling. <Santo Gale MD - Last Filed: 01/04/25 15:53> Vital Signs Vital signs: Initial Vital Signs Temperature 97 F L 01/04/25 12:28 Temperature Source Temporal Artery Scan 01/04/25 12:28 Pulse Rate 87 01/04/25 12:28 Pulse Rhythm Regular 01/04/25 12:28 Pulse Strength 3+ Normal 01/04/25 12:28 Respiratory Rate 18 01/04/25 12:28 Blood Pressure 110/89 01/04/25 12:28 Blood Pressure Mean 96 01/04/25 12:28 Blood Pressure Position Semi-Fowlers 01/04/25 12:28 Pulse Oximetry 100 01/04/25 12:28 Oxygen Delivery Method Room Air 01/04/25 12:28 Vital Signs Temperature 97 F L 01/04/25 12:28 Pulse Rate 87 01/04/25 12:28 Respiratory Rate 18 01/04/25 12:28 Blood Pressure 110/89 01/04/25 12:28 Pulse Oximetry 100 01/04/25 12:28 Oxygen Delivery Method Room Air 01/04/25 12:28 Temperature 97 F L 01/04/25 12:28 Pulse Rate 111 H 10/12/25 19:01 Respiratory Rate 10 L 01/04/25 19:01 Blood Pressure 121/77 01/04/25 19:01 Pulse Oximetry 100 01/04/25 19:01 Oxygen Delivery Method Non Rebreather Mask 01/04/25 14:03 Oxygen Flow Rate 10 01/04/25 14:03 <Santo Gale MD - Last Filed: 01/04/25 15:53> Initial Vital Signs Temperature 97 F L 01/04/25 12:28 Temperature Source Temporal Artery Scan 01/04/25 12:28 Pulse Rate 87 01/04/25 12:28 Pulse Rhythm Regular 01/04/25 12:28 Pulse Strength 3+ Normal 01/04/25 12:28 Respiratory Rate 18 01/04/25 12:28 Blood Pressure 110/89 01/04/25 12:28 Blood Pressure Mean 96 01/04/25 12:28 Blood Pressure Position Semi-Fowlers 01/04/25 12:28 Pulse Oximetry 100 01/04/25 12:28 Oxygen Delivery Method Room Air 01/04/25 12:28 Vital Signs Temperature 97 F L 01/04/25 12:28 Pulse Rate 87 01/04/25 12:28 Respiratory Rate 18 01/04/25 12:28 Blood Pressure 110/89 01/04/25 12:28 Pulse Oximetry 100 01/04/25 12:28 Oxygen Delivery Method Room Air 01/04/25 12:28 Temperature 97 F L 01/04/25 12:28 Pulse Rate 111 H 01/04/25 19:01 Respiratory Rate 10 L 01/04/25 19:01 Blood Pressure 121/77 01/04/25 19:01 Pulse Oximetry 100 01/04/25 19:01 Oxygen Delivery Method Non Rebreather Mask 01/04/25 14:03 Oxygen Flow Rate 10 01/04/25 14:03 <Mary Gale MD - Last Filed: 01/06/25 19:54> Medications Administered Medications: Discontinued Medications Generic Name Dose Route Start Last Admin Trade Name Freq PRN Reason Stop Dose Admin Diphenhydramine HCl 25 mg 01/04/25 15:24 01/04/25 15:07 Diphenhydramine 50 Mg/Ml Inj IVP 01/04/25 15:25 25 mg ONCE ONE Administration Epinephrine HCl 0.3 mg 01/04/25 15:24 01/04/25 15:06 Epinephrine 0.3 Mg Pen IM 01/04/25 15:25 0.3 mg ONCE ONE Administration Fentanyl 50 mcg 01/04/25 17:53 01/04/25 19:04 Fentanyl 100 Mcg/2 Ml Inj IVP 50 mcg Q30M PRN Administration Hydromorphone HCl 0.5 mg 01/04/25 12:26 01/04/25 17:14 Hydromorphone 0.5 Mg/0.5 Ml Inj IVP 0.5 mg Q1H PRN Administration Pain Hydromorphone HCl 0.5 mg 01/04/25 15:21 01/04/25 15:51 Hydromorphone 0.5 Mg/0.5 Ml Inj IVP 01/04/25 15:22 Not Given ONCE ONE Sodium Chloride 1,000 mls @ 1,000 mls/hr 01/04/25 15:00 01/04/25 16:00 0.9 % Sodium Chloride 1000 Ml IV 01/04/25 15:59 Infused .Q1H ARTIS Infusion Ketamine HCl 80 mg 01/04/25 14:15 01/04/25 14:58 Ketamine 50 Mg/0.5 Ml IVP 01/04/25 14:16 80 mg ONCE ONE Administration Ketorolac Tromethamine 15 mg 01/04/25 12:26 01/04/25 13:05 Ketorolac 15 Mg/Ml Inj IVP 01/04/25 12:27 15 mg ONCE ONE Administration Lidocaine/Epinephrine 20 ml 01/04/25 14:01 01/04/25 15:05 Lidocaine 1%-Epi 1:100,000 INFILTRATI 01/04/25 14:02 20 ml ONCE ONE Administration Ondansetron HCl 4 mg 01/04/25 12:26 01/04/25 13:04 Ondansetron 2 Mg/Ml Inj IVP 01/04/25 12:27 4 mg ONCE ONE Administration <Santo Gale MD - Last Filed: 01/04/25 15:53> Discontinued Medications Generic Name Dose Route Start Last Admin Trade Name Freq PRN Reason Stop Dose Admin Diphenhydramine HCl 25 mg 01/04/25 15:24 01/04/25 15:07 Diphenhydramine 50 Mg/Ml Inj IVP 01/04/25 15:25 25 mg ONCE ONE Administration Epinephrine HCl 0.3 mg 01/04/25 15:24 01/04/25 15:06 Epinephrine 0.3 Mg Pen IM 01/04/25 15:25 0.3 mg ONCE ONE Administration Fentanyl 50 mcg 01/04/25 17:53 01/04/25 19:04 Fentanyl 100 Mcg/2 Ml Inj IVP 50 mcg Q30M PRN Administration Hydromorphone HCl 0.5 mg 01/04/25 12:26 01/04/25 17:14 Hydromorphone 0.5 Mg/0.5 Ml Inj IVP 0.5 mg Q1H PRN Administration Pain Hydromorphone HCl 0.5 mg 01/04/25 15:21 01/04/25 15:51 Hydromorphone 0.5 Mg/0.5 Ml Inj IVP 01/04/25 15:22 Not Given ONCE ONE Sodium Chloride 1,000 mls @ 1,000 mls/hr 01/04/25 15:00 01/04/25 16:00 0.9 % Sodium Chloride 1000 Ml IV 01/04/25 15:59 Infused .Q1H ARTIS Infusion Ketamine HCl 80 mg 01/04/25 14:15 01/04/25 14:58 Ketamine 50 Mg/0.5 Ml IVP 01/04/25 14:16 80 mg ONCE ONE Administration Ketorolac Tromethamine 15 mg 01/04/25 12:26 01/04/25 13:05 Ketorolac 15 Mg/Ml Inj IVP 01/04/25 12:27 15 mg ONCE ONE Administration Lidocaine/Epinephrine 20 ml 01/04/25 14:01 01/04/25 15:05 Lidocaine 1%-Epi 1:100,000 INFILTRATI 01/04/25 14:02 20 ml ONCE ONE Administration Ondansetron HCl 4 mg 01/04/25 12:26 01/04/25 13:04 Ondansetron 2 Mg/Ml Inj IVP 01/04/25 12:27 4 mg ONCE ONE Administration <Mary Gale MD - Last Filed: 01/06/25 19:54> Medical Decision Making MDM Narrative Medical decision making narrative: Pleasant generally healthy 24-year-old female presenting to the ER today for injuries after she fell off her horse. She was brought in by private car Saw this patient immediately upon arrival in assisted in getting her into ER room 8 for an assessment. On initial assessment she had stable vitals, left shoulder pain and clavicle tenderness. Clear and equal your lungs. We sent the patient for imaging including head CT since she was momentarily dazed, C-spine CT because we could not clear her spine clinically as well as CT of her chest given her posterior thorax tenderness and recons the CT of her left shoulder . She remained hemodynamically stable throughout the CT process was brought to ER room 8. Pain was much improved after Dilaudid. My review of the CT scan it shows multiple findings including left-sided pneumothorax with subcutaneous emphysema. No left-sided hemothorax. Two rib fractures on the left. Also a midshaft clavicle fracture. Portable chest x-ray confirms the presence of the pneumothorax. Discussed with our general surgeon who recommends chest tube placement here and transfer. Contacted [facility] and arrange acceptance for transfer to the ER at [place]. Discussed options for chest tube with the patient and mother. They strongly prefer to try a percutaneous pneumothorax strain rather than a formal chest tube. Or pneumothorax catheter was placed and we were able to aspirate a 500 mL of air from the left chest cavity. The bowel in the a post placement chest x- ray shows improvement but not resolution of pneumothorax. It ultimate transfer was delayed due to EMS stool for other 9 11 out falls. Although the patient has multiple injuries at this point she is hemodynamically stable save for tachycardia and therefore does not really require a emergent transfer. Additional findings from the radiologist include that she has spinous process fractures of multiple thoracic vertebrae. No evidence for any compression fractures or burst fractures. She is not having any symptoms of spinal cord injury. CTs of her C-spine and brain are normal. CT of her left shoulder confirmed a have a fracture <Santo Gale MD - Last Filed: 01/04/25 15:53> Lab Data Labs: Lab Results 01/04/25 Range/Units 13:05 WBC 15.27 H (4.50-11.00) K/uL RBC 4.80 (4.00-5.20) m/uL Hgb 14.2 (12.0-16.0) gm/dL Hct 43.2 (33.0-51.0) % MCV 90 (80-100) fL MCH 30 (26-34) pg MCHC 33 (32-36) gm/dL RDW Coeff of Odilia 12.5 (11.5-15.5) % Plt Count 371 (140-440) K/uL Neut % (Auto) 80.0 H (42.0-72.0) % Lymph % (Auto) 15.8 L (20-44) % Cole % (Auto) 3.1 (0.0-11.0) % Eos % (Auto) 0.3 (0.0-7.0) % Baso % (Auto) 0.3 (0.0-3.0) % Neut # (Auto) 12.20 H (1.7-7.0) K/uL Lymph # (Auto) 2.40 (0.90-2.90) K/uL Cole # (Auto) 0.50 (0.00-0.90) K/UL Eos # (Auto) 0.00 (0.00-0.50) K/uL Baso # (Auto) 0.00 (0.00-0.30) K/uL Abs Immat Gran (auto) 0.10 (0.00-0.30) K/uL Imm/Tot Granulo (auto) 0.5 % INR 0.93 (0.91-1.10) Sodium 137 (135-149) mmol/L Potassium 4.2 (3.6-5.1) mmol/L Chloride 100 (96-114) mmol/L Carbon Dioxide 27 (20-32) mmol/L Anion Gap 10 (7-15) mEq/L BUN 14 (5-24) mg/dL Creatinine 0.8 (0.5-1.5) mg/dL Estimated GFR 106 ml/min Glucose 153 H (60-115) mg/dL Calcium 9.7 (8.4-10.6) mg/dL HCG, Qual Negative (Negative) <Santo G MD Baljinder - Last Filed: 01/04/25 15:53> Lab Results 01/04/25 Range/Units 13:05 WBC 15.27 H (4.50-11.00) K/uL RBC 4.80 (4.00-5.20) m/uL Hgb 14.2 (12.0-16.0) gm/dL Hct 43.2 (33.0-51.0) % MCV 90 (80-100) fL MCH 30 (26-34) pg MCHC 33 (32-36) gm/dL RDW Coeff of Odilia 12.5 (11.5-15.5) % Plt Count 371 (140-440) K/uL Neut % (Auto) 80.0 H (42.0-72.0) % Lymph % (Auto) 15.8 L (20-44) % Cole % (Auto) 3.1 (0.0-11.0) % Eos % (Auto) 0.3 (0.0-7.0) % Baso % (Auto) 0.3 (0.0-3.0) % Neut # (Auto) 12.20 H (1.7-7.0) K/uL Lymph # (Auto) 2.40 (0.90-2.90) K/uL Cole # (Auto) 0.50 (0.00-0.90) K/UL Eos # (Auto) 0.00 (0.00-0.50) K/uL Baso # (Auto) 0.00 (0.00-0.30) K/uL Abs Immat Gran (auto) 0.10 (0.00-0.30) K/uL Imm/Tot Granulo (auto) 0.5 % INR 0.93 (0.91-1.10) Sodium 137 (135-149) mmol/L Potassium 4.2 (3.6-5.1) mmol/L Chloride 100 (96-114) mmol/L Carbon Dioxide 27 (20-32) mmol/L Anion Gap 10 (7-15) mEq/L BUN 14 (5-24) mg/dL Creatinine 0.8 (0.5-1.5) mg/dL Estimated GFR 106 ml/min Glucose 153 H (60-115) mg/dL Calcium 9.7 (8.4-10.6) mg/dL HCG, Qual Negative (Negative) <Mary Gale MD - Last Filed: 01/06/25 19:54> Critical Care Time Critical Care Time Critical Care Time: Yes Attestation: The patient required my highest level preparedness to intervene emergently and I personally spent this critical care time directly and personally managing the patient. This critical care time included: Obtaining a history; Examining the patient; Pulse oximetry; Ordering and reviewing of studies; Arranging urgent treatment with development of a management plan; Evaluation of patients response to treatment; Frequent reassessment discussions with other providers. This critical care time was performed to assess and manage the high probability of imminent life-threatening deterioration that could result in multiorgan failure. It was exclusive of separate billable procedures and treating other patients and teaching time. <Santo Gale MD - Last Filed: 01/04/25 15:53> Total Critical Care Time in Minutes: 40 <Santo Gale MD - Last Filed: 01/04/25 15:53> Discharge Plan Discharge Clinical Impression: Pneumothorax, Fracture, ribs, Fracture of spinous process of thoracic vertebra, Clavicle fracture, Contusion of left lung, Allergic reaction <Santo Gale MD - Last Filed: 01/04/25 15:53> Patient Disposition: Xfer Other <Santo Gale MD - Last Filed: 01/04/25 15:53> Prescriptions: No Action No Known Home Medications <Santo Gale MD - Last Filed: 01/04/25 15:53> Stand Alone Forms: [facility] Info Instructions <Santo Gale MD - Last Filed: 01/04/25 15:53> Procedures Chest Tube Chest Tube 1: Pre procedure diagnosis: Rib fractures, traumatic pneumothorax <Santo Gale MD - Last Filed: 01/04/25 15:53> Written consent by: patient <Santo Gale MD - Last Filed: 01/04/25 15:53> Procedure: placement <Santo Gale MD - Last Filed: 01/04/25 15:53> Site marking: site marked <Santo Gale MD - Last Filed: 01/04/25 15:53> Verification/time out: correct patient, correct site, correct procedure and time out performed <Santo Gale MD - Last Filed: 01/04/25 15:53> Local Anesthetic: lidocaine 1% <Santo Gale MD - Last Filed: 01/04/25 15:53> Amount of anesthesia used (mL): 10 <Santo Gale MD - Last Filed: 01/04/25 15:53> Chest Tube Location: left <Santo Gale MD - Last Filed: 01/04/25 15:53> Tube type: pneumothorax catheter <Santo Gale MD - Last Filed: 01/04/25 15:53> Chest Tube Prep: Yes betadine prep (Chlorhexidine sterile prep) and sterile drapes applied <Santo Gale MD - Last Filed: 01/04/25 15:53> Incision Made With: #11 blade (5 mm) <MD Ivan Herrera Last Filed: 01/04/25 15:53> Post Procedure: sutured to skin <Santo Gale MD - Last Filed: 01/04/25 15:53> Tube Drainage: other (Using a lower lock syringe and stopcock we aspirated 500 mL of air from the thoracic cavity until we encounter resistance suggesting that the lung was reinflated. We then hooked the chest tube up through a lower lock connection to a [place] tree and hooked to the [place] thoracic drainage sent) <Santo Gale MD - Last Filed: 01/04/25 15:53> Amount of initial drainage (mL): 500 (500 mL of air. No blood or liquid) <Santo Gale MD - Last Filed: 01/04/25 15:53> Post Procedure CXR?: Yes (Shows improvement in the pneumothorax but still some residual pneumo at th) <Santo Gale MD - Last Filed: 01/04/25 15:53> Estimated blood loss (if any): none <MD Ivan Herrera Last Filed: 01/04/25 15:53> Progress: X-ray shows improvement in the size of the pneumothorax but still some residual air at the apex. Tip of the pneumothorax drainage catheter within the thoracic cavity. <Santo Gale MD - Last Filed: 01/04/25 15:53>
[2025-01-04] MEDS: ONDANSETRON 2 MG/ML inj 4 MG IVP (13:04)
[2025-01-04 13:25] LABS: Hematocrit* 43.2 % (33.0-51.0); Hemoglobin* 14.2 gm/dL (12.0-16.0); Immature Granulocytes Pct Auto 0.5 %; Mean Corpuscular HGB Conc 33 gm/dL (32-36); Mean Corpuscular Hemoglobin 30 pg (26-34); Mean Corpuscular Volume 90 fL (80-100); RDW Coefficient of Variation % 12.5 % (11.5-15.5); Red Blood Count* 4.80 m/uL (4.00-5.20); White Blood Count* 15.27 K/uL (4.50-11.00)
[2025-01-04 13:26] LABS: Immature Granulocytes Abs Auto 0.10 K/uL (0.00-0.30); Lymphocytes Absolute Auto 2.40 K/uL (0.90-2.90); Slide Review Reflex No
[2025-01-04 13:37] LABS: Chloride* 100 mmol/L (96-114); Potassium* 4.2 mmol/L (3.6-5.1); Sodium* 137 mmol/L (135-149)
--- NOTE | 2025-01-04 13:38 | CRLHL7_ITS ---
For Patients: As a result of the Cures Act, medical imaging exams and procedure reports are released immediately into your electronic medical record. You may view this report before your referring provider. If you have questions, please contact your health care provider. INDICATION: Left rib fractures. COMPARISON: Chest CT scan dated 04 January 2025. FINDINGS: A single portable chest x-ray shows a normal cardiac silhouette. The lungs show a small to moderate left apical pneumothorax. No focal pulmonary opacities. A few left lateral rib fractures. Mildly displaced fracture of the mid to distal portion of the left clavicle. Impression : 1. Small to moderate left apical pneumothorax. 2. A few left lateral rib fractures. Mildly displaced fracture of the mid to distal portion of the left clavicle. Dictated by Manny Lemus MD @ 01/04/2025 3:56:38 PM Dictated by: Manny Lemus MD @ 01/04/2025 15:56:53 (Electronically Signed)
[2025-01-04 13:40] LABS: Anion Gap 10 mEq/L (7-15); Blood Urea Nitrogen* 14 mg/dL (5-24); Calcium* 9.7 mg/dL (8.4-10.6); Carbon Dioxide* 27 mmol/L (20-32); Creatinine* 0.8 mg/dL (0.5-1.5); Estimated Glomerular Filt Rate 106 ml/min; Glucose* 153 mg/dL (60-115); INR 0.93 (0.91-1.10); Prothrombin Time 13.3 Seconds
[2025-01-04 14:01] LABS: HCG Qualitative Serum* Negative (Negative)
--- OUTSIDE RECORDS SUMMARY | 2025-01-04 14:28 | XMS_ITS | Encounter Summary ---
Author Organization [place] Address [facility] [place] [address] Care Team Providers Care Facilities Administrator Name Role Phone Carlee Bernabe APRN, CNP Primary Care Provider + [phone] Carlee Bernabe APRN, CNP Unavailable [phone] Encounter Details Date Type Department Care Team (Late st Contact Info) Description 11/26/2024 Results Follow-Up [facility] [address], [address] [place] [address] Carlotta aGle PA-C [address] [place] [address] Subj: Message about your results Social History Tobacco Use Types Packs/Day Years Used Date Smoking Tobacco: Never Passive Smoke Exposure: Never Smokeless Tobacco: Never Alcohol Use Standard Drinks/Week Comments Yes 3 (1 standard drink = 0.6 oz pur e alcohol) Socially PHQ-2 Answer Date Recorded PHQ-2 Score 2 11/26/2024 [facility] [place] of Occupat ional Health - Occupational Stress [...] Answer Date Recorded Do you have housing? (Lm g is defined as stable permanent housing and does not include staying outside in a car, in a tent, in an abandoned building, in an overnight detention, or couch-surfing.) Yes 11/25/2024 Are you worried [...] on file documented as of this encounter Plan of Treatment Not on file documented as of this encounter Visit Diagnoses Not on filedocumented in this encounter Additional Health Concerns Assessment Noted Time PHQ-9 Depression Total Score: 12 024 3:56 PM CDT documented as of this encounter Care Teams Facilities Administrator Relationship Specialty Start Date End Date Carlee Bernabe APRN REVIEW COORDINATOR [id number] [address] [address] PCP - General Family Medicine 12/19/23 Carlee Bernabe APRN [facility] [address] [place] [phone] Assigned PCP 01/16/24 documented as of this encounter
--- OUTSIDE RECORDS SUMMARY | 2025-01-04 14:28 | XMS_ITS | Encounter Summary ---
Author Organization [place] Address [facility] [place] [address] Care Team Providers Care Manufacturing Maintenance Manager Name Role Phone Carlee Bernabe APRN, CNP Primary Care Provider + [phone] Carlee Bernabe APRN, CNP Unavailable [phone] Encounter Details Date Type Department Care Team (Latest Contact Info) Description 11/26/2024 Travel Social History Tobacco Use Types Packs/Day Years Used Date Smoking Tobacco: Never Passive Smoke Exposure: Never Smokeless Tobacco: Never Alcohol Use Standard Drinks/Week Comments Yes 3 (1 standard drink = 0.6 oz pur e alcohol) Socially PHQ-2 Answer Date Recorded PHQ-2 Score 2 11/26/2024 [facility] [place] of Occupat ional Health - Occupational Stress [...] Date Recorded Do you have housing? (Lm ulrich is defined as stable permanent housing and does not include staying outside in a car, in a tent, in an abandoned building, in an overnight half-way, or couch-surfing.) Yes 11/25/2024 Are you worried [...] documented as of this encounter Care Teams Manufacturing Maintenance Manager Relationship Specialty Start Date End Date Carlee Bernabe APRN ENGINE INSTALLER [address] [id number] PCP - General Family Medicine 12/19/23 Carlee Bernabe APRN ENGINE INSTALLER [address] [id number] Assigned PCP 01/16/24 documented as of this encounter
--- OUTSIDE RECORDS SUMMARY | 2025-01-04 14:28 | XMS_ITS | Clinical Summary ---
Author Organization [place] Address [address] [place] [address] Care Team Providers Care Administrative Assistant Office Manager Name Role Phone Carlee Bernabe APRN, CNP Primary Care Provider + [phone] Carlee Bernabe APRN MARKETING COMMUNITY LIAISON Unavailable [phone] Allergies No known active allergies Medications No known medications Active Problems Problem Noted Date Diagnosed Date Migraine without aura and wi thout status migrainosus, not intractable 12/19/2023 Overview (12/19/2023): Had multiple concussion- last one in 2015. Migraines and diplopia since that time. Diplopia 12/19/2023 Anxiety and depression 12/19/2023 Assessment & Plan (12/19/2023 9:30 PM CDT): Tried sertraline in 2022 for 3 months- stopped due to nausea. Plan to start escitalopram at 5 mg for 14 days then increase to 10 mg. Risks/benefits discussed. Can use hydroxyzine 25 mg up to 3x/day as needed for anxiety. Discussed potential side effects. Schedule therapy appointment with counselor. Practice grounding exercises discussed today and breathing/meditation techniques such as square breathing. Encounters Date Type Department Care Team Description 11/26/2024 7:00 AM CDT Office Visit [address], [address] [place] [address] Carlotta Gale PA-C Routine general medical examination at a health care facility (Primary Dx); Menorrhagia with regular cycle; Encounter for counseling regarding contraception 11/26/2024 Results Follow-Up [facility] [place] [address] [place] [phone] Carlotta Gale PA-C Subj: Message about your results 11/26/2024 Travel 11/25/2024 Travel 11/18/2024 MyC Medical Advice [facility] [place] [address] [place] [phone] Caterina [place] from Last 3 Months Immunizations Immunization Administration Dates Next Due Comvax (HIB/HepB) 2001,2001 DTAP (<7y) 08/13/2006, 2,2001,10/08 DTaP/HepB/IPV 11/13/2002 [id number] Novel Flu 02/11/2009 HIB, Unspecified 11/13/2002 HPV9 (Gardasil) 04/03/2017,11/23/2016,09/18/2016 Hepatitis A (Vaqta/Havrix)(P eds 12m-18y) 04/03/2017,09/18/2016 Influenza (H1N1) 04/05/2009 Influenza (IIV3) PF 03/09/2010,02/04/2010 MMR (MMRII) 08/13/2006,08/12/2002 Meningococcal ACWY (Menveo ) 09/24/2017,08/26/2013 Pneumococcal (PCV 7) 11/13/2002,02/05/20 02,2001,10/08 Poliovirus, inactivated (IPV) 08/13/2006, 002,2001 TDAP (Adacel,Boostrix) 09/13/2022,09/13/2012 Varicella (Varivax) 08/13/2006,08/12/2002 Family History Medical History Relation Comments Diabetes Paternal Grandmother Relation Status Comments Father Alive Mother Alive Paternal Grandmother Alive Social History Tobacco Use Types Packs/Day Years Used Date Smoking Tobacco: Never Passive Smoke Exposure: Never Smokeless Tobacco: Never Alcohol Use Standard Drinks/Week Comments Yes 3 (1 standard drink = 0.6 oz pur e alcohol) Socially PHQ-2 Answer Date Recorded PHQ-2 Score 2 11/26/2024 [facility] - Occupational Stress Questionnaire Answer Date Recorded [...] in an abandoned building, in an overnight halfway, or couch-surfing.) Yes 11/25/2024 Are you worried [...] on file Sexual Orientation Not on file Last Filed Vital Signs Vital Sign Reading [...] Mass Index 24.96 11/26/2024 7:06 AM CDT Plan of Treatment Health Maintenance Due Date Last Done Comments MENINGITIS B VACCINE (1 of 2 - Standard) 2017 COVID-19 VACCINE ( season) 2024 09/13/2022, 12/17/2020, 11/26/2020 INFLUENZA VACCINE (#1) 2024 0, 02/04/2010, 04/05/2009, Additional history exists CHLAMYDIA SCREENING 12/18/2024 12/19/2023 ANNUAL REVIEW OF HM ORDERS 11/26/2025 11/26/2024, YEARLY PREVENTIVE VISIT 11/26/2025 11/27/19 25, 12/19/2023, 07/31/2022 PAP 12/18/2026 12/19/2023 ADVANCE CARE PLANNING 11/26/2029 11/26/2024 DTAP/TDAP/TD VACCINE (8 - Td or Tdap) 09/13/2032 09/13/2022, 09/13/2012, 08/13/2006, Additional history exists ZOSTER VACCINE (1 of 2) 08/12/2051 HEPATITIS B VACCINE Completed 11/13/2002, 2001, 2001 PNEUMOCOCCAL VACCINE: PEDIATRICS (0 to 5 YEARS) AND AT-RISK PATIENTS (6 to 49 YEARS) Aged Out 11/13/2002, 02/04/2002, 2001, Additional history exists No longer eligible based on patient's age to complete this topic HPV VACCINE Completed 04/03/2017, 10/26, 09/18/2016 MENINGITIS VACCINE Completed 09/24/2017, 08/26/2013 HEPATITIS C SCREENING Completed 12/19/2023 HIV SCREENING Completed 12/19/2023 PHQ-2 (once per calendar year) Completed 11/26/2024, 12/19/2023, 12/19/2023 Procedures Procedure Name Priority Date/Time Associated Diagnosis Comments TSH WITH FREE T4 REFLEX Routine 11/26/2024 7:36 AM CDT Menorrhagia with regular cycle CBC WITH PLATELETS Routine 11/26/2024 7: 36 AM CDT Menorrhagia with regular cycle HIV ANTIGEN ANTIBODY COMBO Routine 12/19/2023 5:43 PM CDT Screening for HIV (human immunodeficiency virus) HEPATITIS C SCREEN REFLEX TO HCV RNA QUANT AND GENOTYPE Routine 12/19/2023 5:43 PM CDT Need for hepatitis C screening test CHLAMYDIA TRACHOMATIS PCR Routine 12/19/2023 4:58 PM CDT Screening for STDs (sexually transmitted diseases) GYNECOLOGIC CYTOLOGY Routine 12/19/2023 4:55 PM CDT Cervical cancer screening from Last 3 Months or Most Recently Relevant to Health Maintenance Results * TSH with free T4 reflex (11/26/2024 7:36 AM CDT) TSH 1.65 0.30 - 4.20 uIU/mL 11/26/2024 5:12 PM CDT [facility] Blood BLOOD SPECIMEN / Unknown Venipuncture / Unknown 11/26/2024 7:36 AM CDT 11/26/2024 7:36 AM CDT us Carlotta Manasa Gale PA-C LAB - BLOOD ORDERABLES F inal Result [facility] [place] [facility] [address], [address] [place] [address], [facility] * CBC with platelets (11/26/2024 7:36 AM [...] - 33.0 pg 11/26/2024 7:44 AM CDT [facility] MCHC 32.9 31.5 - 36.5 g/dL 11/26/2024 7:44 AM CDT [facility] RDW 12.4 10.0 - 15.0 % 11/26/2024 7:44 AM CDT [facility] Platelet Count 285 150 - 450 10e3/uL 11/26/2024 7:44 AM CDT [facility] Blood BLOOD SPECIMEN / Unknown Venipuncture / Unknown 11/26/2024 7:36 AM CDT 11/26/2024 7:36 AM CDT us Carlotta Gale PA-C LAB - BLOOD ORDERABLES F inal Result [facility]AT[facility] [place] [facility] [address] Lab, 1st Floor - [address] [place] [address], [facility] * HIV Antigen Antibody Combo (12/19/2023 5:43 PM CDT) HIV Antigen Antibody Combo Nonreactive Nonreactive 12/20/2023 1:39 AM CDT LABORATORY Comment:Negative HIV-1 p24 a ntigen and HIV-1/2 antibody screening test results usually indicate the absence of HIV-1 and HIV-2 infection. However, such negative results do not rule-out acute HIV infection. If acute HIV-1 or HIV-2 infection is suspected, detection of HIV-1 or HIV-2 RNA is recommended. Blood BLOOD SPECIMEN / Unknown Venipuncture / Unknown 12/19/2023 5:43 PM CDT 12/19/2023 5:43 PM CDT Carlee Bernabe APRN, CNP LAB - BLOOD ORDERABLES Final Result Performing Organization Address City/[facility]/ZIP Co de Phone Number LABORATORY [facility] [place] [facility] [address], [address] [place], [place] [address] [place] * Hepatitis C Screen Reflex to HCV RNA Quant and Genotype (12/19/2023 5:43 PM CDT) Hepatitis C Antibody Nonreactive Nonreactive 12/20/2023 1:02 AM CDT LABORATORY Comment:A nonreactive screen ing test result does not exclude the possibility of exposure to or infection with HCV. Nonreactive screening test results in individuals with prior exposure to HCV may be due to antibody levels below the limit of detection of this assay or lack of reactivity to the HCV antigens used in this assay. Patients with recent HCV infections (<3 months from time of exposure) may have false- negative HCV antibody results due to the time needed for seroconversion (average of 8 to 9 weeks). Blood BLOOD SPECIMEN / Unknown Venipuncture / Unknown 12/19/2023 5:43 PM CDT 12/19/2023 5:43 PM CDT Carlee Bernabe APRN, CNP LAB - BLOOD ORDERABLES Final Result Performing Organization Address City/[facility]/ZIP Co de Phone Number LABORATORY [facility] [place] [facility] [address], [address] [address] * CHLAMYDIA TRACHOMATIS PCR (12/19/2023 4:58 PM CDT) Chlamydia trachomatis Negative Negative 12/20/2023 2:14 PM CDT [facility] Comment:A negative result by insolvency practitioner mediated amplification does not preclude the presence of C. trachomatis infection because results are dependent on proper and adequate collection, absence of inhibitors and sufficient rRNA to be detected. Swab CERVIX UTERI STRUCTURE / Unknown Non-blood Collection / Unknown 12/19/2023 4:58 PM CDT 12/19/2023 6:06 PM CDT us Carlee Bernabe APRN MARKETING COMMUNITY LIAISON LAB - MICRO GENERAL ORDERABL ES Final Result [facility] Inf. Diseases Diag. Lab [address] [facility] [place] [place], [address] [place] [address] * Pap Screen Only - Recommended Age 21 - 24 Years (12/19/2023 4:55 PM CDT) Interpretation Negative for Intraepithelial Lesion or Malignancy (NILM) 12/24/2023 8:49 AM CDT [facility] at 0849 CDT Comment Papanicolaou Test Limitations: Cervical cytology is a screening test with limited sensitivity, and regular screening is critical for cancer prevention. Pap tests are primarily effective for the diagnosis/prevent ion of squamous cell carcinoma, not adenocarcinoma or other cancers. 12/24/2023 8:49 AM CDT [facility] Specimen Adequacy Satisfactory for evaluation, endocervical/flores sformation zone component absent 12/24/2023 8:49 AM CDT [facility] Clinical Information none 12/24/2023 8:49 AM CDT [facility] Reflex Testing No 12/24/2023 8:49 AM CDT [facility] Previous Abnormal? No 12/24/2023 8:49 AM CDT [facility] Performing Labs The technical component of this testing was completed at [facility]. Stain controls for all stains resulted within this report have been reviewed and show appropriate reactivity. 12/24/2023 8:49 AM CDT [facility] Brushing ENDOCERVICAL STRUCTURE / Unknown Non-blood Collection / Unknown 12/19/2023 4:55 PM CDT 12/19/2023 6:05 PM CDT Carlee KUO - MARSHA AGUDELO Final Result [facility] [address] [facility], [address] [address], [facility] from Last 3 Months or Most Recently Relevant to Health Maintenance Insurance BCBS OUT OF STATE BCBS OUT OF STATE Care Teams Administrative Assistant Office Manager Relationship Specialty Start Date End Date Carlee Bernabe APRN CNP [address] [address] [phone] PCP - General Family Medicine 12/19/23 Carlee Bernabe APRN [facility] [address] [address] [phone] Assigned PCP 01/16/24
--- OUTSIDE RECORDS SUMMARY | 2025-01-04 14:28 | XMS_ITS | Encounter Summary ---
Author Organization [place] Address [facility] [place] [address] Care Team Providers Care Kieselguhr Regenerator Operator Name Role Phone Carlee Bernabe APRN, CNP Primary Care Provider + [phone] Carlee Bernabe APRN, CNP Unavailable [phone] Encounter Details Date Type Department Care Team (Latest Contact Info) Description 11/25/2024 Travel Social History Tobacco Use Types Packs/Day Years Used Date Smoking Tobacco: Never Smokeless Tobacco: Never PHQ-2 Answer Date Recorded PHQ-2 Score 2 11/26/2024 [facility] [place] of Occupat ional Health - Occupational Stress [...] in an abandoned building, in an overnight jail, or couch-surfing.) Yes 11/25/2024 Are you worried [...] documented as of this encounter Care Teams Kieselguhr Regenerator Operator Relationship Specialty Start Date End Date Carlee Bernabe APRN APPLICATIONS CHEMIST [phone] [address] [address] PCP - General Family Medicine 12/19/23 Carlee Bernabe APRN CNP [address] [address] [address] Assigned PCP 01/16/24 documented as of this encounter
--- OUTSIDE RECORDS SUMMARY | 2025-01-04 14:28 | XMS_ITS | Encounter Summary ---
Author Organization [place] Address [address] [place] [address] Care Team Providers Care Territory Development Manager Name Role Phone Carlee Bernabe APRN, CNP Primary Care Provider + [phone] Carlee Bernabe APRN MIX HOUSE OPERATOR Unavailable [phone] Encounter Details Date Type Department Care Team (Late st Contact Info) Description 11/18/2024 MyC Medical Advice [address], [address] [place] [address] Caterina [place] Social History Tobacco Use Types Packs/Day Years Used Date Smoking Tobacco: Never Smokeless Tobacco: Never Social Connection and Isolation Panel [NHANES] A nswer Date Recorded Frequency of Communication with Friends and Fami ly Not on file 12/19/2023 How often do you get together with friends or re latives? Twice a week 12/19/2023 Attends Spiritism Services Not on file 12/18 Active Member of Clubs or Organizations Not on f ile 12/19/2023 Attends Club or Organization Meetings Not on paola e 12/19/2023 Marital Status Not on file 12/19/2023 PHQ-2 Answer Date Recorded PHQ-2 Score 2 12/19/2023 [facility] [place] of Occupat ional Health - Occupational Stress Questionnaire Answer Date Recorded Do you feel stress - tense, restless, nervous, or anxious, or unable to sleep at night because your mind is troubled all the time - these days? To some extent 12/19/2023 Exercise Vital Sign Answer Date Recorde d On average, how many days pe r week do you engage in moderate to strenuous exercise (like a brisk walk)? 5 days Minutes of Exercise per Session Not on file 12/19/2023 Food Insecurity Answer Date Recorded Within the past 12 months, d id you worry that your food would run out before you got money to buy more? No 12/19/2023 Within the past 12 months, d id the food you bought just not last and you didn t have money to get more? No 12/19/2023 Housing Stability Answer Date Recorded Do you have housing? (Lm ulrich is defined as stable permanent housing and does not include staying outside in a car, in a tent, in an abandoned building, in an overnight jail, or couch-surfing.) Yes 12/19/2023 Are you worried about losing your housing? No 12/19/2023 Financial Resource Strain Answer Date R ecorded Within the past 12 months, h ave you or your family members you live with been unable to get utilities (heat, electricity) when it was really needed? No 12/19/2023 Transportation Needs Answer Date Record ed Within the past 12 months, h as lack of transportation kept you from medical appointments, getting your medicines, non-medical meetings or appointments, work, or from getting things that you need? No 12/19/2023 Interpersonal Safety Answer Date Record ed Do you feel physically and e motionally safe where you currently live? Yes 12/19/2023 Within the past 12 months, h ave you been hit, slapped, kicked or otherwise physically hurt by someone? No 12/19/2023 Within the past 12 months, h ave you been humiliated or emotionally abused in other ways by your partner or ex-partner? No 12/19/2023 Comments No Sex and Gender Information Value Date Recorded Sex Assigned at Not on file Legal Sex Female 3:06 PM CDT Gender Identity Not on file Sexual Orientation Not on file documented as of this encounter Miscellaneous Notes * Telephone Encounter - Astrid Monroy CMA - 11/20/2024 7:14 AM CDT Last read by Lalitha Albrecht at 10:22AM on 11/18/2024 but has not responded or rescheduled; closing. Astrid Monroy CMA (JOANA) * Telephone Encounter - Caterina [place] - 11/18/2024 10:21 AM CDT Patient scheduled for physical with Carlotta Gale on 11/26 and is not due until 12/18. Patient will need to check with insurance company to see if visit can be done or will need to reschedule. If patient has other concerns she would like to address, change to office visit. MyChart sent. documented in this encounter Plan of Treatment Not on file documented as of this encounter Visit Diagnoses Not on filedocumented in this encounter Additional Health Concerns Assessment Noted Time PHQ-9 Depression Total Score: 12 12/18/ 024 3:56 PM CDT documented as of this encounter Care Teams Territory Development Manager Relationship Specialty Start Date End Date Carlee Bernabe APRN MIX HOUSE OPERATOR [address] [place] [address] PCP - General Family Medicine 12/19/23 Carlee Bernabe APRN MIX HOUSE OPERATOR [address] [address] [address] Assigned PCP 01/16/24 documented as of this encounter
--- OUTSIDE RECORDS SUMMARY | 2025-01-04 14:28 | XMS_ITS | Clinical Summary ---
Author Organization [facility] Address [id number] [address] Care Team Providers Care Supervisory Lifeguard Name Role Phone Unavailable Primary Care Provider Unavailabl e Source Comments You are receiving this document as you are listed as the primary care provider,follow-up provider, or the patient has been referred to you for consultation.This is in compliance with the Medicare and[facility] E[facility] Incentive Program,which states Providers who transition their patient to another setting of careor provider of care or refers their patient to another provider of care shouldprovide summary care record for each transition of care or referral. [facility] Allergies No known active allergies Medications No known medications Social History Tobacco Use Types Packs/Day Years Used Date Smoking Tobacco: Never Smokeless Tobacco: Never Tobacco Cessation:Counseling Given: Not Answered Comments Unknown Sex and Gender Information Value Date Recorded Sex Assigned at Not on file Legal Sex Female 5:29 PM CDT Gender Identity Not on file Sexual Orientation Not on file Last Filed Vital Signs Vital Sign Reading Time Taken Comments Blood Pressure - - Pulse - - Temperature - - Respiratory Rate - - Oxygen Saturation - - Inhaled Oxygen Concentration - - Weight 59 kg (130 lb) 08/20/2024 5:47 PM CDT Height 160 cm (5' 3) 08/20/2024 5:47 PM CDT Body Mass Index 23.03 08/20/2024 5:47 PM CDT Plan of Treatment Health Maintenance Due Date Last Done Comments Cervical Cancer Screening Due 2001 Hep C Screening (Preventive Services) 2001 MenB Immunization Discussion 2001 HIV Screening (Preventive Services) 2017 Adult Preventive Visit 08/12/2019 HepB Vaccine (1) 2020 COVID-19 Vaccine ( season) 2024 09/13/2022, 12/17/2020, 11/26/2020 Influenza Vaccine (#1) 2024 03/09/2010, 2009 Chlamydia 12/18/2024 12/19/2023, 12/19/2023 DTaP/Tdap/Td Vaccine (8 - Tdap) 09/13/2032 09/13/2022, 09/13/2012, 08/13/2006, Additional history exists Zoster/Shingles Vaccine (1 of 2) 08/12/2051 Hib Vaccine Completed 11/13/2002, 11/24, 2001 Pneumococcal Vaccine Aged Out 11/13/2002, 02/04/2002, 2001, Additional history exists No longer eligible based on patient's age to complete this topic IPV (Polio) Vaccine Completed 08/13/2006, 11/13/2002, 2001, Additional history exists HPV Vaccine Completed 04/03/2017, 10/26, 09/18/2016 HepA Vaccine Completed 04/03/2017, 09/18/2016 MCV4 Vaccine Completed 09/24/2017, 08/26/2013 Insurance [phone] [facility] [address] [address] BC[place] [id number]
[2025-01-04] MEDS: KETAMINE 80 MG IVP (14:58)
[2025-01-04] MEDS: LIDOCAINE 1%-EPI 1:100,000 20 ML INFILTRATI (15:05)
[2025-01-04] MEDS: EPINEPHrine 0.3 MG PEN IM (15:06)
--- NOTE | 2025-01-04 15:13 | CRLHL7_ITS ---
For Patients: As a result of the Century Cures Act, medical imaging exams and procedure reports are released immediately into your electronic medical record. You may view this report before your referring provider. If you have questions, please contact your health care provider. INDICATION: Chest tube placement. TECHNIQUE: Chest 1 portable view. COMPARISON: Chest radiograph earlier on 01/04/2025. FINDINGS: Small bore thoracostomy tube now terminates in the periphery of the left mid to upper lung zone. Small left apical pneumothorax persists but has decreased. Mild left basilar atelectasis. Lungs otherwise clear. Cardiac and mediastinal contours are within normal limits. Upper abdomen as imaged is unremarkable. Soft tissue gas in the left chest wall is unchanged. Left clavicle and rib fractures, as before. IMPRESSION: Small left apical pneumothorax persists but has decreased. Dictated by Emory Rodriguez MD @ 01/04/2025 4:59:27 PM (Electronically Signed)
--- NOTE | 2025-01-04 18:18 | ED.NURSE ---
Pt stable; continue to wait for EMS transfer. Pt had immediate reaction to ketamine of rash and now with third administration of dilaudid Pt had subtle reaction of rash. Both added to list of allergies.
== END 2025-01-04 19:20 | disposition other institution (70) ==
PROVIDERS: Emergency Provider Emergency Medicine
DX: J93.9 Pneumothorax, unspecified (principal); S42.002A Fracture of unspecified part of left clavicle, initial encounter for closed fracture; S27.321A Contusion of lung, unilateral, initial encounter; S22.000A Wedge compression fracture of unspecified thoracic vertebra, initial encounter for closed fracture; S22.42XA Multiple fractures of ribs, left side, initial encounter for closed fracture; V80.010A Animal-rider injured by fall from or being thrown from horse in noncollision accident, initial encounter
CPT/HCPCS: 32551; 36415; 70450; 71045; 71260; 72125; 73200; 80048; 84703; 85025; 85610; 96372; 96374; 96375; 99285; 99291; J0169; J1171; J1200; J1885; J2405; J3010; J3490; J7030; Q9967

== ENCOUNTER 2025-01-04 18:50 | Outpatient (CLI) | payer BC, SELFPAY | END 2025-01-04 18:51 | disposition home or self-care (01) | LOC: AMB 01-06 14:12 | PROVIDERS: Visit Provider Family Medicine | DX: S42.009A Fracture of unspecified part of unspecified clavicle, initial encounter for closed fracture (principal); S27.321A Contusion of lung, unilateral, initial encounter; S22.008A Other fracture of unspecified thoracic vertebra, initial encounter for closed fracture; S22.49XA Multiple fractures of ribs, unspecified side, initial encounter for closed fracture | CPT/HCPCS: A0425; A0433 ==